=== PATIENT | male | born 1965 | race Caucasian/White ===

== ENCOUNTER → 2024-02-03 10:40 | Outpatient (REF) | payer BC, SELFPAY | LOC: RAD 10:40 | PROVIDERS: ATTENDING PHYSICIAN Physician Assistant Medical | DX: M25.562 Pain in left knee (principal) | CPT/HCPCS: 73564 ==

== ENCOUNTER → 2024-08-09 06:48 | Outpatient (REF) | payer BC, SELFPAY ==
[2024-08-09 09:11] LABS: Blood Urea Nitrogen 14 mg/dl (9-20); Calcium 9.7 mg/dl (8.4-10.2); Carbon Dioxide 28 mmol/L (22-30); Chloride 103 mmol/L (98-107); Glucose 93 mg/dl (70-99); Sodium 143 mmol/L (135-145); eGFR > 60.00
== END ==
LOC: RCS 06:48
PROVIDERS: ATTENDING PHYSICIAN Orthopaedic Surgery; FAMILY PHYSICIAN Family Medicine
DX: Z01.818 Encounter for other preprocedural examination (principal)
CPT/HCPCS: 36415; 80048; 93005